=== PATIENT | male | born 1985 | race Caucasian/White ===

== ENCOUNTER 2018-06-12 13:30 | Emergency (ER) | payer OTHER ==
[2018-06-12 13:46] VITALS: BP 106/67; PULSE 48; TEMP 97.3; BMI 22.6
[2018-06-12] MEDS ORDERED: ACETAMINOPHEN 1000 MG/100 ML VIAL (NON FORMULARY) IVPB ONE (14:02)
[2018-06-12] MEDS ORDERED: SODIUM CHLORIDE 0.9% 500 ML INFUS.BAG IV ONE (14:02)
[2018-06-12] MEDS ORDERED: ACETAMINOPHEN INJECTION 100 ML IVPB ONE (14:04)
--- NOTE | 2018-06-12 14:10 | PDOC ---
History of Present Illness - General Chief Complaint: Pain, Acute Stated Complaint: RIGHT ABDOMEN PAIN Time Seen by Provider: 06/12/18 13:45 History Source: Patient Exam Limitations: No Limitations - History of Present Illness Initial Comments: 06/12/18 14:10 This is a 33 YOM with extensive family history of kidney stones who p/w episodic sharp 06/30 non-radiating RLQ abdominal pain associated with nausea and diaphoresis. He has experienced two episodes since last night at 10 pm, the first of which lasted 10 minutes and the second of which lasted 15 minutes and occurred roughly 30 minutes [employer] to the ED. It resolved spontaneously and abruptly, and now he notes only mild soreness to the same area which worsens slightly when he puts pressure on it. His only additional symptom is a twinge of pain that he had at the end of his urine stream when urinating here in the department to give urine sample. He denies any prior episodes and took no medications for this pain. He believes it is a kidney stone. He denies f/c, vomiting, diarrhea, constipation, n/t/w, rash, testicular pain or swelling, penile discharge, burning on urination, blood in the urine, back pain, leg pain , chest pain, SOB, headache, lightheadedness, dizziness, or other symptoms. Past History - Past Medical History Allergies/Adverse Reactions: Allergies Allergy/AdvReac Type Severity Reaction Status Date / Time No Known Allergies Allergy Verified 06/12/18 16:24 Home Medications: Ambulatory Orders Ibuprofen [Motrin -] 600 mg PO QID #28 tablet 06/12/18 Losartan Potassium [Cozaar] 25 mg PO DAILY 06/12/18 COPD: No HTN: Yes - Suicide/Smoking/Psychosocial Hx Smoking History: Never smoked Hx Alcohol Use: No Drug/Substance Use Hx: No Substance Use Type: None Review of Systems - Review of Systems Able to Perform ROS?: Yes Constitutional: Yes: Diaphoresis (resolved). No: Chills, Fever, Unexplained wgt Loss HEENTM: No: Nose Congestion, Throat Pain Respiratory: No: Cough, Shortness of Breath Cardiac (ROS): No: Chest Pain, Palpitations ABD/GI: Yes: Nausea (resolved), Other (RLQ abdominal pain). No: Constipated, Diarrhea, Vomiting : Yes: Other (twinge of pain while urinating). No: Burning, Discharge, Frequency, Flank Pain, Hematuria, Testicular Swelling, Testicular Pain Musculoskeletal: No: Back Pain, Neck Pain Integumentary: No: Bruising, Rash Neurological: No: Headache, Numbness, Tingling, Weakness, Dizziness Endocrine: No: Unexplained Weight Gain, Unexplained Weight Loss *Physical Exam - Vital Signs Last Vital Signs Temp Pulse Resp BP Pulse Ox 97.3 F L 48 L 22 H 106/67 100 06/12/18 13:37 06/12/18 13:37 06/12/18 13:37 06/12/18 13:37 06/12/18 13:37 06/12/18 14:38 GENERAL: nontoxic and well-appearing, nourished, A/Ox4, no acute distress, appears comfortable, speaking in full sentences, answers questions appropriately , accompanied by his girlfriend at bedside HEENT: PERRLA, EOMI, moist mucous membranes, no posterior pharyngeal erythema, no tonsillar swelling or exudates, no cervical lymphadenopathy NECK: No midline ttp, no spinal stepoff or deformity, full ROM, supple CARDIOVASCULAR: Regular rate and rhythm, normal S1S2, MGR, radial and DP pulses 2+ and symmetric, capillary refill <2 seconds, extremities warm and well- perfused Chest wall: Normal appearance, no rash, no bruising, no costal stepoff or deformity, nontender to compression LUNGS/RESPIRATORY: No respiratory distress, normal and symmetric chest movements during respirations, lungs CTA bilaterally, equal breath sounds, no cyanosis, no nail clubbing GI/ABDOMEN: Normal symmetric appearance, normoactive bowel sounds, soft, mild RLQ tenderness to palpation, no midline pulsatile masses, no palpated organomegaly : No CVA tenderness, genital exam: circumcised, no penile lesions or discharge or erythema, no testicular tenderness or swelling, normal lie of testicles, cremasteric reflexes intact bilaterally BACK: No midline ttp or stepoff or deformity of thoracic or lumbar spine EXTREMITIES: distal pulses 2+, warm and well-perfused, no LE edema SKIN: Warm and dry, no pallor, no jaundice, no bruising, no rash, no skin breakdown, no cuts, no lesions NEUROLOGICAL: GCS 15, CN II-XII grossly intact, ambulating with normal gait, moving all extremities, 5/5 strength proximally and distally, no facial droop, no decreased sensation Medical Decision Making - Medical Decision Making 06/12/18 14:36 Adult male Pt p/w RLQ abdominal pain. Initial Vital Signs Temp Pulse Resp BP Pulse Ox 97.3 F L 48 L 22 H 106/67 100 06/12/18 13:37 06/12/18 13:37 06/12/18 13:37 06/12/18 13:37 06/12/18 13:37 Exam: As noted in Physical Exam section. DDX IBNLT: renal colic, obstructive uropathy, appendicitis, hernia, UTI/ pyelonephritis, constipation, testicular torsion, epididymitis, orchitis, urethritis, musculoskeletal, diverticulitis wwo abscess or perforation, colitis , regional ileitis (Crohns disease), SBO, bowel ischemia, malignancy W/U ordered: UA TX ordered: IVF Ofirmev Also ordered is spiral CT renal stone protocol. Toradol ordered. Laboratory Tests 06/12/18 13:47 Urine Color Yellow Urine Appearance Clear Urine pH 7.0 Ur Specific [place] 1.015 Urine Protein Trace Urine Glucose (UA) Negative Urine Ketones Trace Urine Blood 3+ H Urine Nitrite Negative Urine Bilirubin Negative Urine Urobilinogen 0.2 Ur Leukocyte Esterase Negative Urine RBC 10-20 Urine WBC 0-2 Ur Epithelial Cells Rare Urine Bacteria Rare CT A/P: On initial emergency physician read, there is a ~5.6 mm calcification ( possible stone) around the area of the right UVJ. Official Radiology Read: CT/SPIRAL- RENAL-STONE CT HISTORY PROVIDED: Right flank pain TECHNIQUE: Sequential axial images were obtained from the domes of the through the symphysis pubis utilizing urinary tract calculi protocol. The lung bases are clear. There is no evidence of calcifications within the kidneys, ureters or urinary bladder suspicious for urinary tract calculi. There is no evidence of hydronephrosis or obstructive uropathy. No significant abnormalities of the liver, spleen, pancreas, or adrenal glands are identified. There is no evidence of intra-abdominal, retroperitoneal or pelvic mass lesions, fluid collections or lymphadenopathy. There is no evidence of pneumoperitoneum, bowel obstruction or intra-abdominal abscess. There is no evidence of acute appendicitis or diverticulitis. There is no evidence of acute bony pathology. IMPRESSION: 1. No evidence of urinary tract calculi or obstructive uropathy. 2. No acute pathology within the abdomen or pelvis. Reassessment: Patient states pain essentially resolved. Repeat exam benign. 06/12/18 15:52 This patient has gotten significant relief of symptoms while in the ED. On last reassessment, vitals are wnl, pain is reasonably controlled, and exam is benign. Workup is not concerning for emergency-level pathology at this time. This patient is appropriate for discharge with close outpatient follow up. They are comfortable with this plan and will follow up with their primary care provider in 1-3 days. They are given Urology referral information in case needed. Specific return precautions are discussed and they will come back to the ER if necessary. *DC/Admit/Observation/Transfer Diagnosis at time of Disposition: Abdominal pain Qualifiers: Abdominal location: right lower quadrant Qualified Code(s): R10.31 - Right lower quadrant pain - Discharge Dispostion Disposition: HOME Condition at time of disposition: Good Decision to Admit order: No - Prescriptions Prescriptions: Ibuprofen [Motrin -] 600 mg PO QID #28 tablet - Referrals Referrals: Floyd Yo MD [Primary Care Provider] - Tonny Cortez MD [Staff Physician] - - Patient Instructions Printed Discharge Instructions: DI for Abdominal Pain-Adult Additional Instructions: YOU WERE SEEN IN THE ER FOR ABDOMINAL PAIN. WE DID URINE TESTS WHICH SHOWED BLOOD IN THE URINE, WHICH IS COMMON WITH KIDNEY STONES. WE DID NOT SEE SIGNS OF AN INFECTION IN THE URINE OR ON YOUR VITAL SIGNS. WE DID A CT SCAN AND THE RADIOLOGIST LOOKED AT THIS AND TOLD US THAT THERE WAS NO OBVIOUS STONE. WE BELIEVE THIS IS BECAUSE EITHER THE STONE ALREADY PASSED, OR IT IS TOO SMALL TO SEE ON THE STUDY (SIZE AND PAIN DO NOT CORRELATE WELL WITH KIDNEY STONES, SO IT WOULD STILL CAUSE YOU PAIN). WE GAVE YOU MEDICATIONS AND IV FLUIDS WHICH HELPED YOUR SYMPTOMS. AFTER OUR ASSESSMENT, WE DO NOT BELIEVE YOU ARE HAVING A MEDICAL EMERGENCY AT THIS TIME, AND WE BELIEVE YOU ARE SAFE TO GO HOME. 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 WE ARE GIVING YOU REFERRAL INFORMATION FOR A UROLOGIST IN CASE YOU NEED A NEW ONE, GIVEN YOUR FAMILY HISTORY OF KIDNEY STONES. PLEASE TAKE OVER THE COUNTER PAIN MEDICATIONS FOR PAIN, FOLLOWING THE INSTRUCTIONS ON THE MEDICATION LABEL. PLEASE FOLLOW UP WITH YOUR PRIMARY CARE PROVIDER IN 1-3 DAYS. CALL THEIR CLINIC [facility], TELL THEM YOU WERE SEEN IN THE ER, AND TELL THEM YOU NEED AN APPOINTMENT. PLEASE COME BACK TO THE ER AT ANY TIME, 24 HOURS A DAY, FOR ANY NEW OR WORSENING SYMPTOMS, LIKE WORSENING PAIN UNRELIEVED WITH MEDICATIONS, FEVER, VOMITING, INABILITY TO URINATE, BURNING ON URINATION, TESTICULAR PAIN OR SWELLING, OR OTHER SYMPTOMS. IF YOU ARE HAVING SEVERE OR LIFE THREATENING SYMPTOMS, OR SYMPTOMS THAT MAKE IT UNSAFE TO DRIVE OR HAVE SOMEONE DRIVE YOU, PLEASE CALL 911. - Post Discharge Activity
[2018-06-12 14:17] LABS: URINE APPEARANCE Clear; URINE BILIRUBIN Negative (NEGATIVE); URINE COLOR Yellow; URINE GLUCOSE (UA) Negative (NEGATIVE); URINE KETONE Trace (NEGATIVE); URINE LEUK ESTERASE Negative (NEGATIVE); URINE NITRITE Negative (NEGATIVE); URINE PROTEIN Trace (NEGATIVE); URINE UROBILINOGEN 0.2 (0.2-1.0)
[2018-06-12 14:56] LABS: EPI CELLS RARE /HPF; URINE BACTERIA RARE /hpf (NEGATIVE); URINE WBC 0-2 (0-2)
[2018-06-12] MEDS ORDERED: KETOROLAC TROMETHAMINE 15 MG/ML VIAL IVPUSH ONE (15:17)
--- NOTE | 2018-06-12 15:39 | PDOC ---
Attending Attestation - Resident Resident Name: Fiona Covington - ED Attending Attestation I have performed the following: I have examined & evaluated the patient, The case was reviewed & discussed with the resident, I agree w/resident's findings & plan, Exceptions are as noted - HPI HPI: 06/12/18 15:33 33-year-old male no past medical history here today complaining of sharp intermittent right lower quadrant pain with started last night. During episodes of pain. Patient did have episodes of nausea and vomiting denies any fevers or chills today while urinating had an episode of similar sharp pain no otherwise penile discharge no noted hematuria no history of renal colic however his father has a history of kidney stones denies any change to his bowel movements no testicular pain no trauma no bulging in the stomach consistent with a hernia no moderating factors - Physicial Exam PE: 06/12/18 15:36 Awake alert no acute distress lungs are clear bilaterally heart is regular without any murmurs rubs or gallops abdomen is soft mild right lower quadrant tenderness no rebound no guarding no CVA tenderness no palpable hernia extremities are warm and well-perfused no edema neurologically he is alert and oriented 3 - Medical Decision Making 06/12/18 15:37 Differential diagnosis includes renal colic, UTI, [place], patient denies any testicular symptoms to suggest torsion however we'll perform a exam story is unlikely to be appendicitis due to its intermittent sharp in nature plan CT spiral UA CBC CMP IV fluids and pain control CT abdomen and pelvis obtained there is no noted stone per the radiologist. Findings discussed the radiologist to concerns for a calcification in the right pelvis however it is felt to be a phlebolith patient does have noted to hematuria consistent with possible stone or passed stone feels overall much improved will likely discharge home with urology follow-up
[2018-06-12] MEDS ORDERED: KETOROLAC TROMETHAMINE 15 MG/ML VIAL ONE (15:41)
== END 2018-06-12 16:29 | disposition home or self-care (01) ==
LOC: FER 13:30
PROC: 3E0337Z Introduction of Electrolytic and Water Balance Substance into Peripheral Vein, Percutaneous Approach (ICD-10-PCS; principal; 2018-06-12)
PROC: 3E033NZ Introduction of Analgesics, Hypnotics, Sedatives into Peripheral Vein, Percutaneous Approach (ICD-10-PCS; 2018-06-12)
PROC: 3E0333Z Introduction of Anti-inflammatory into Peripheral Vein, Percutaneous Approach (ICD-10-PCS; 2018-06-12)
DX: R10.31 Right lower quadrant pain (principal); I10 Essential (primary) hypertension
CPT/HCPCS: 74176; 81003; 81015; 99283-25; J0131